=== PATIENT | female | born 1955 | race Caucasian/White ===

== ENCOUNTER 2020-10-20 16:07 | Emergency (ER) | payer BC ==
[2020-10-20 17:23] LABS: Bilirubin,Urine NEG (Negative); Blood,Urine SM (Negative); Color,Urine Yellow (Yellow); Mucus,Urine FEW /HPF; Protein,Urine <15 mg/dL mg/dL (Negative); Urobilinogen,Urine < 2.0 mg/dL (<2.0)
[2020-10-20] MEDS ORDERED: SODIUM CHLORIDE 0.9% 1000 ML 1,000 ML IV ONE (19:26)
[2020-10-20] MEDS ORDERED: MORPHINE 4 MG/1 ML INJ IV ONE (19:26)
[2020-10-20] MEDS ORDERED: ONDANSETRON 4 MG/2 ML INJ IV ONE (19:26)
--- NOTE | 2020-10-20 19:32 | Emergency Department Report ---
ED General Adult HPI - General Chief complaint: Back Pain/Injury Stated complaint: 4 DAYS BACK PAIN EXTREME Time Seen by Provider: 10/20/20 19:25 Source: patient Mode of arrival: Ambulatory Limitations: No Limitations - History of Present Illness Initial comments: Patient is a 65-year-old female presents emergency room with lower back pain that began 4 to 5 days ago. She states that she also has associated lower abdominal pain. She denies any fever, nausea, vomiting, diarrhea, urinary symptoms. She states that she has been taking Tylenol and ibuprofen without relief. She denies any past medical history. No allergies to medications. She states her pain is worse with movements and worse with bending over. - Related Data Previous Rx's Medication Instructions Recorded Last Taken Type Ciprofloxacin HCl [Ciprofloxacin 500 mg PO BID 7 Days #14 tab 10/20/20 Unknown Rx TAB] Docusate Sodium [Colace] 100 mg PO BID PRN #20 capsule 10/20/20 Unknown Rx Polyethylene Glycol 3350 [Miralax] 7 gm PO DAILY PRN #1 powder 10/20/20 Unknown Rx metroNIDAZOLE [Flagyl] 500 mg PO BID 7 Days #14 tab 10/20/20 Unknown Rx traMADoL [Ultram 50 MG tab] 50 mg PO Q8HR PRN #7 tablet 10/20/20 Unknown Rx Allergies Allergy/AdvReac Type Severity Reaction Status Date / Time No Known Allergies Allergy Verified 10/20/20 21:45 ED Review of Systems ROS: Stated complaint: 4 DAYS BACK PAIN EXTREME Other details as noted in HPI Comment: All other systems reviewed and negative ED Past Medical Hx - Past Medical History Previous Medical History?: No - Surgical History Past Surgical History?: No - Medications Home Medications: Home Medications Medication Instructions Recorded Confirmed Last Taken Type Ciprofloxacin HCl [Ciprofloxacin 500 mg PO BID 7 Days #14 tab 10/20/20 Unknown Rx TAB] Docusate Sodium [Colace] 100 mg PO BID PRN #20 capsule 10/20/20 Unknown Rx Polyethylene Glycol 3350 [Miralax] 7 gm PO DAILY PRN #1 powder 10/20/20 Unknown Rx metroNIDAZOLE [Flagyl] 500 mg PO BID 7 Days #14 tab 10/20/20 Unknown Rx traMADoL [Ultram 50 MG tab] 50 mg PO Q8HR PRN #7 tablet 10/20/20 Unknown Rx ED Physical Exam - General Limitations: No Limitations General appearance: alert, in no apparent distress - Head Head exam: Present: atraumatic, normocephalic - Eye Eye exam: Present: normal appearance - ENT ENT exam: Present: mucous membranes moist - Neck Neck exam: Present: normal inspection, full ROM. Absent: tenderness - Respiratory Respiratory exam: Present: normal lung sounds bilaterally. Absent: respiratory distress, wheezes, rales, rhonchi, stridor, chest wall tenderness, accessory muscle use, decreased breath sounds, prolonged expiratory - Cardiovascular Cardiovascular Exam: Present: regular rate, normal rhythm, normal heart sounds. Absent: systolic murmur, diastolic murmur, rubs, gallop - GI/Abdominal GI/Abdominal exam: Present: soft, tenderness (lower), normal bowel sounds. Absent: distended, guarding, rebound, rigid - Back Exam Back exam: Present: normal inspection, full ROM, paraspinal tenderness (lumbar), vertebral tenderness (lumbar, no step offs, no deformities) - Neurological Exam Neurological exam: Present: alert, oriented X3, CN II-XII intact, normal gait. Absent: motor sensory deficit - Psychiatric Psychiatric exam: Present: normal affect, normal mood - Skin Skin exam: Present: warm, dry, intact ED Course Vital Signs 10/20/20 10/21/20 16:12 02:10 Temperature 98.1 F 98.1 F Pulse Rate 83 71 Respiratory 20 16 Rate Blood Pressure 153/76 Blood Pressure 127/85 [Left] O2 Sat by Pulse 99 98 Oximetry ED Medical Decision Making - Lab Data Result diagrams: 10/20/20 19:31 10/20/20 19:31 Lab Results 10/20/20 10/20/20 10/20/20 Range/Units 16:32 19:31 19:31 WBC 8.7 (4.5-11.0) K/mm3 RBC 4.42 (3.65-5.03) M/mm3 Hgb 13.5 (10.1-14.3) gm/dl Hct 41.2 (30.3-42.9) % MCV 93 (79-97) fl MCH 31 (28-32) pg MCHC 33 (30-34) % RDW 13.7 (13.2-15.2) % Plt Count 349 (140-440) K/mm3 Lymph % (Auto) 29.5 (13.4-35.0) % [place] % (Auto) 5.8 (0.0-7.3) % Eos % (Auto) 2.3 (0.0-4.3) % Baso % (Auto) 0.6 (0.0-1.8) % Lymph # (Auto) 2.6 (1.2-5.4) K/mm3 [place] # (Auto) 0.5 (0.0-0.8) K/mm3 Eos # (Auto) 0.2 (0.0-0.4) K/mm3 Baso # (Auto) 0.0 (0.0-0.1) K/mm3 Seg Neutrophils % 61.8 (40.0-70.0) % Seg Neutrophils # 5.4 (1.8-7.7) K/mm3 Sodium 140 (137-145) mmol/L Potassium 3.3 L (3.6-5.0) mmol/L Chloride 104.2 (98-107) mmol/L Carbon Dioxide 25 (22-30) mmol/L Anion Gap 14 mmol/L BUN 13 (7-17) mg/dL Creatinine 0.5 L (0.6-1.2) mg/dL Estimated GFR > 60 ml/min BUN/Creatinine Ratio 26 % Glucose 170 H (65-100) mg/dL Calcium 9.3 (8.4-10.2) mg/dL Total Bilirubin 0.40 (0.1-1.2) mg/dL AST 62 H (5-40) units/L ALT 140 H (7-56) units/L Alkaline Phosphatase 241 H (35-129) units/L Total Protein 7.7 (6.3-8.2) g/dL Albumin 3.8 L (3.9-5) g/dL Albumin/Globulin Ratio 1.0 % Urine Color Yellow (Yellow) Urine Turbidity Clear (Clear) Urine pH 6.0 (5.0-7.0) Ur Specific [place] 1.011 (1.003-1.030) Urine Protein <15 mg/dl (Negative) mg/dL Urine Glucose (UA) Neg (Negative) mg/dL Urine Ketones Neg (Negative) mg/dL Urine Blood Sm (Negative) Urine Nitrite Neg (Negative) Urine Bilirubin Neg (Negative) Urine Urobilinogen < 2.0 (<2.0) mg/dL Ur Leukocyte Esterase Neg (Negative) Urine WBC (Auto) 1.0 (0.0-6.0) /HPF Urine RBC (Auto) 2.0 (0.0-6.0) /HPF Urine Mucus Few /HPF Vital Signs 10/20/20 10/21/20 16:12 02:10 Temperature 98.1 F 98.1 F Pulse Rate 83 71 Respiratory 20 16 Rate Blood Pressure 153/76 Blood Pressure 127/85 [Left] O2 Sat by Pulse 99 98 Oximetry - Radiology Data Radiology results: report reviewed CT ABDOMEN AND PELVIS WITH CONTRAST INDICATION / CLINICAL INFORMATION: lower abd pain, lower back pain, constipation. TECHNIQUE: Axial CT images were obtained through the abdomen and pelvis following the administration of intravenous contrast. All CT scans at this location are performed using CT dose reduction for ALARA by means of automated exposure control. COMPARISON: None available. FINDINGS: LOWER CHEST: No significant abnormality. LIVER: No significant abnormality. GALLBLADDER: No significant abnormality. PANCREAS: No significant abnormality. SPLEEN: No significant abnormality. ADRENALS: No significant abnormality. KIDNEYS / URETERS: No significant abnormality. URINARY BLADDER: No significant abnormality. REPRODUCTIVE ORGANS: No significant abnormality. STOMACH / SMALL BOWEL: There is a tiny hiatal hernia. Small bowel is unremarkable. COLON: There is an 8 cm segment of ascending colon which demonstrates mucosal thickening and inflammatory change with caliber change at the hepatic flexure. APPENDIX: Not definitively visualized. PERITONEUM: No free fluid. No free air. No fluid collection. LYMPH NODES: No significant adenopathy. AORTA / ARTERIES: No significant abnormality. IVC / VEINS: No significant abnormality. SKELETAL SYSTEM: No significant abnormality. ADDITIONAL FINDINGS: None. IMPRESSION: 1. Mucosal thickening and inflammatory change involving and 8 cm segment of ascending colon, with caliber change at the hepatic flexure. Findings may reflect a focal colitis with infectious or inflammatory etiology. However, colonoscopy is recommended to exclude a mass in this region. 2. Tiny hiatal hernia. Signer Name: Jason Piña MD Signed: 10/20/2020 9:33 PM Workstation Name: [id number] Transcribed By: GAVIN Dictated By: JASON PIÑA Electronically Authenticated By: JASON PIÑA Signed Date/Time: 10/20/202132 DD/ 26 TD/TT: - Medical Decision Making Patient is a 65-year-old female presents emergency room with lower back pain that began 4 to 5 days ago. She states that she also has associated lower ab dominal pain. She denies any fever, nausea, vomiting, diarrhea, urinary symptoms. She states that she has been taking Tylenol and ibuprofen without relief. She denies any past medical history. No allergies to medications. She states her pain is worse with movements and worse with bending over. VSS. on exam: Lower abdominal tenderness on exam, no guarding, no rebound, no rigidity, no peritoneal signs, bilateral paraspinal and lumbar tenderness palpation, no step-offs, no deformities, no focal neuro deficits. Labs with mildly elevated LFTs, bilirubin is normal. Mild hypokalemia 3.3, repleted with K-Dur. CT abd pelvis with IV contrast: 1. Mucosal thickening and inflammatory change involving and 8 cm segment of ascending colon, with caliber change at the hepatic flexure. Findings may reflect a focal colitis with infectious or inflammatory etiology. However, colonoscopy is recommended to exclude a mass in this region. 2. Tiny hiatal hernia. Patient given pain medication and IV fluids while in the ED and her symptoms improved. Patient is able to tolerate p.o. intake. Patient given Flagyl and Levaquin while in the ED.Spoke with Dr. Alonzo regarding patient history, results and advised to have patient follow-up as an outpatient and put patient on antibiotics. Patient given prescription for Cipro, Flagyl, Colace, MiraLAX, tramadol. Advised patient Please take medication as prescribed. Increase your fluid intake. Follow-up with a primary care doctor. Follow-up with a GI doctor. Return to emergency room for any new or worsening symptoms. - Differential Diagnosis UTI, nephrolithiasis, colitis, diverticulitis, DDD, muscle strain, obstruct Critical care attestation.: If time is entered above; I have spent that time in minutes in the direct care of this critically ill patient, excluding procedure time. ED Disposition Clinical Impression: Colitis, Elevated LFTs, Hypokalemia Abdominal pain Qualifiers: Abdominal location: lower abdomen, unspecified Qualified Code(s): R10.30 - Lower abdominal pain, unspecified Back pain Qualifiers: Back pain location: low back pain Chronicity: acute Back pain laterality: unspecified Sciatica presence: without sciatica Qualified Code(s): M54.5 - Low back pain Disposition: TO HOME OR SELFCARE Is pt being admited?: No Does the pt Need Aspirin: No Condition: Stable Instructions: Colitis Additional Instructions: Please take medication as prescribed. Increase your fluid intake. Follow-up with a primary care doctor. Follow-up with a GI doctor. Return to emergency room for any new or worsening symptoms. Prescriptions: Ciprofloxacin HCl [Ciprofloxacin TAB] 500 mg PO BID 7 Days #14 tab Docusate Sodium [Colace] 100 mg PO BID PRN #20 capsule PRN Reason: constipation metroNIDAZOLE [Flagyl] 500 mg PO BID 7 Days #14 tab Polyethylene Glycol 3350 [Miralax] 7 gm PO DAILY PRN #1 powder PRN Reason: constipation traMADoL [Ultram 50 MG tab] 50 mg PO Q8HR PRN #7 tablet PRN Reason: Pain , Severe (7-10) Referrals: PRIMARY CARE, [Primary Care Provider] - 2-3 Days [facility] [Provider Group] - 2-3 Days Forms: Work/School Release Form(ED) Time of Disposition: 21:44 Print Language: FAROESE
[2020-10-20 19:52] LABS: Basophils % (Auto) 0.6 % (0.0-1.8); Eosinophils # (Auto) 0.2 K/mm3 (0.0-0.4); Eosinophils % (Auto) 2.3 % (0.0-4.3); Hematocrit 41.2 % (30.3-42.9); Hemoglobin 13.5 gm/dl (10.1-14.3); Lymphocytes # (Auto) 2.6 K/mm3 (1.2-5.4); Lymphocytes % (Auto) 29.5 % (13.4-35.0); Mean Corpuscular HGB Conc 33 % (30-34); Mean Corpuscular Volume 93 fl (79-97); Monocytes # (Auto) 0.5 K/mm3 (0.0-0.8); Monocytes % (Auto) 5.8 % (0.0-7.3); Platelet Count 349 K/mm3 (140-440); Red Blood Count 4.42 M/mm3 (3.65-5.03); Red Cell Distribution Width 13.7 % (13.2-15.2)
[2020-10-20 20:07] LABS: Alanine Aminotransferase 140 units/L (7-56); Albumin 3.8 g/dL (3.9-5); Blood Urea Nitrogen 13 mg/dL (7-17); Calcium 9.3 mg/dL (8.4-10.2); Hemolysis Index 6
[2020-10-20 20:13] LABS: BUN/Creatinine Ratio 26
--- NOTE | 2020-10-20 21:37 | Cat Scan Report ---
CT ABDOMEN AND PELVIS WITH CONTRAST INDICATION / CLINICAL INFORMATION: lower abd pain, lower back pain, constipation. TECHNIQUE: Axial CT images were obtained through the abdomen and pelvis following the administration of intraven ous contrast. All CT scans at this location are performed using CT dose reduction for ALARA by means of automated exposure control. COMPARISON: None available. FINDINGS: LOWER CHEST: No significant abnormality. LIVER: No significant abnormality. GALLBLADDER: No significant abnormality. PANCREAS: No significant abnormality. SPLEEN: No significant abnormality. ADRENALS: No significant abnormality. KIDNEYS / URETERS: No significant abnormality. URINARY BLADDER: No significant abnormality. REPRODUCTIVE ORGANS: No significant abnormality. STOMACH / SMALL BOWEL: There is a tiny hiatal hernia. Small bowel is unremarkable. COLON: There is an 8 cm segment of ascending colon which demonstrates mucosal thickening and inflamma tory change with caliber change at the hepatic flexure. APPENDIX: Not definitively visualized. PERITONEUM: No free fluid. No free air. No fluid collection. LYMPH NODES: No significant adenopathy. AORTA / ARTERIES: No significant abnormality. IVC / VEINS: No significant abnormality. SKELETAL SYSTEM: No significant abnormality. ADDITIONAL FINDINGS: None. IMPRESSION: 1. Mucosal thickening and inflammatory change involving and 8 cm segment of ascending colon, with [place] iber change at the hepatic flexure. Findings may reflect a focal colitis with infectious or inflammat ory etiology. However, colonoscopy is recommended to exclude a mass in this region. 2. Tiny hiatal hernia. Signer Name: Sung Piña MD Signed: 10/20/2020 9:33 PM Workstation Name: [id number]
[2020-10-20] MEDS ORDERED: metroNIDAZOLE/NS 500 MG/100 ML 500 MG/100 ML BAG IV ONE (21:40)
[2020-10-20] MEDS ORDERED: POTASSIUM CHLORIDE ER 20 MEQ TAB PO ONE (21:41)
[2020-10-20] MEDS ORDERED: HYDROmorphone 1 MG/1 ML INJ IV ONE (22:22)
[2020-10-21 05:08] VITALS: BP 127/85
== END 2020-10-21 02:06 | disposition home or self-care (01) ==
LOC: ED 16:07
DX: K52.9 Noninfective gastroenteritis and colitis, unspecified (principal); E87.6 Hypokalemia; R79.89 Other specified abnormal findings of blood chemistry; M54.5 Low back pain; R10.30 Lower abdominal pain, unspecified; Z79.2 Long term (current) use of antibiotics; Z79.899 Other long term (current) drug therapy
CPT/HCPCS: 36415; 74177; 80053; 81001; 85025; 96361; 96365; 96366; 96367; 96375; 99284; J1170; J1956; J2270; J2405; J7030; Q9967